=== PATIENT | female | born 1995 | race Hispanic/Latino ===

== ENCOUNTER 2021-10-24 08:37 | Day surgery (SDC) | payer SELFPAY ==
[2021-10-24 09:07] VITALS: BMI 35.4
[2021-10-24] MEDS ORDERED: hydrALAZINE 20 MG/ML VIAL SLOW IVP PRN (09:32)
[2021-10-24] MEDS ORDERED: Acetaminophen 500 MG TAB PO PRN (10:45)
[2021-10-24 11:47] LABS: Bacteria/HPF None Seen HPF (None Seen); RBC/HPF 0-3 HPF (0-3); Squamous Epithelial None Seen HPF (0-3); WBC/HPF 0-3 HPF (0-3)
== END 2021-10-24 12:03 | disposition home or self-care (01) ==
LOC: CSHLD/OP 08:37
PROVIDERS: ATTEND Obstetrics & Gynecology
DX: O26.893 Other specified pregnancy related conditions, third trimester (principal); R10.31 Right lower quadrant pain; O34.219 Maternal care for unspecified type scar from previous cesarean delivery; Z3A.30 30 weeks gestation of pregnancy
CPT/HCPCS: 76857; 81015

== ENCOUNTER 2021-12-21 08:22 | Outpatient (CLI) | payer OTHER ==
[2021-12-21 15:05] LABS: Hemoglobin 12.5 g/dL (12.0-15.5); Mean Corpuscular HGB CONC 30.9 g/dL (32.0-36.0); Mean Corpuscular Hemoglobin 26.4 pg (27.0-33.0); Mean Corpuscular Volume 85.6 fl (81.6-98.3); Mean Platelet Volume 12.6 fl (7.4-10.4); Platelet Count 235 10x3/uL (150-450); RBC Distribution Width 14.3 % (11.5-14.5); Red Blood Cell (RBC) Count 4.73 10x6/uL (3.90-5.03); White Blood Cell (WBC) Count 6.4 10x3/uL (3.5-10.5)
[2021-12-21 15:45] LABS: Hep B Surf Ag Non-Reactive S/CO (NonReactive); Syphilis Antibody Nonreactive (Nonreactive); Syphilis Antibody Index 0.04 S/CO (<1.00 Non-Reactive)
[2021-12-21 15:51] LABS: HBSAg Index 0.18 S/CO (0-0.99)
[2021-12-21 23:14] LABS: SARS-CoV-2 PCR by NAA DETECTED (NotDetected)
== END 2021-12-21 08:23 | disposition home or self-care (01) ==
LOC: CSHLAB 08:22
PROVIDERS: ATTEND Student in an Organized Health Care Education/Training Program
DX: Z20.822 Contact with and (suspected) exposure to COVID-19 (principal)
CPT/HCPCS: 85027; 86780; 86900; 86901; 87340; U0003; U0005

== ENCOUNTER 2021-12-25 15:28 | Inpatient (IN) | payer MEDICAID, OTHER, SELFPAY ==
[2021-12-25] MEDS ORDERED: Bicitra 30 ML UDCUP PO PRN (16:05)
[2021-12-25] MEDS ORDERED: Famotidine/PF 20 mg/2ml Vial SLOW IVP PRN (16:05)
[2021-12-25] MEDS ORDERED: hydrALAZINE 20 MG/ML VIAL SLOW IVP PRN (16:05)
[2021-12-25] MEDS ORDERED: Acetaminophen 500 MG TAB PO PRN (16:05)
[2021-12-25] MEDS ORDERED: Promethazine HCl 25 MG/ML VIAL IM PRN (16:05)
[2021-12-25] MEDS ORDERED: Ondansetron PF 4 MG/2 ML Vial IVP PRN (16:05)
[2021-12-25] MEDS ORDERED: Ondansetron PF 4 MG/2 ML Vial ONE (16:10)
[2021-12-25] MEDS ORDERED: Dexamethasone 4 mg/ml Vial ONE (16:10)
[2021-12-25] MEDS ORDERED: ePHEDrine Sulfate 50 MG/10 ML VIAL ONE (16:10)
[2021-12-25] MEDS ORDERED: Morphine PF 10 MG/10 ML VIAL ONE (16:10)
[2021-12-25] MEDS ORDERED: Oxytocin 10 UNITS/ML VIAL ONE ×2 (16:11→18:02)
[2021-12-25] MEDS ORDERED: Phenylephrine 40 MG/NS 250 ML 250 ML ONE (16:12)
[2021-12-25] MEDS ORDERED: Lactated Ringer's 1,000 ML IV SCH (16:15)
[2021-12-25] MEDS ORDERED: ceFAZolin 2 GM/Dextrose 50 ML 2 GM in Premix Bag 1 BAG IVPB SCH (16:15)
[2021-12-25 16:17] VITALS: BMI 36.3
[2021-12-25 17:03] LABS: #Monocytes 0.3 10x3/uL (0.0-1.1); #Neutrophils 5.4 10x3/uL (1.5-8.4); %Basophils 0.3 % (0.0-2.0); %Eosinophils 0.3 % (0.0-6.0); %Lymphocytes 22.2 % (18.0-47.0); %Monocytes 4.6 % (0.0-10.0); %Neutrophils 72.3 % (40.0-75.0); Hemoglobin 11.2 g/dL (12.0-15.5); Mean Corpuscular HGB CONC 31.5 g/dL (32.0-36.0); Mean Corpuscular Hemoglobin 26.7 pg (27.0-33.0); Mean Corpuscular Volume 84.8 fl (81.6-98.3); Mean Platelet Volume 11.7 fl (7.4-10.4); Platelet Count 214 10x3/uL (150-450); RBC Distribution Width 14.5 % (11.5-14.5); White Blood Cell (WBC) Count 7.4 10x3/uL (3.5-10.5)
[2021-12-25 17:39] LABS: HIV (1/2) Antibody/Antigen Non-Reactive (NonReactive); HIV 1/2 INDEX 0.07 S/CO (<1.00)
[2021-12-25] MEDS ORDERED: Bisacodyl 10 MG SUPP PR PRN (21:40)
[2021-12-25] MEDS ORDERED: diphenhydrAMINE 25 MG CAP PO PRN (21:40)
[2021-12-25] MEDS ORDERED: Misoprostol 200 MCG TAB PR PRN (21:40)
[2021-12-25] MEDS ORDERED: Lanolin Ointment 7 GM TUBE TOP PRN (21:40)
[2021-12-25] MEDS ORDERED: Boostrix 0.5 ML (Tdap) VIAL IM ONE (21:40)
[2021-12-25] MEDS ORDERED: Simethicone Chewable 80 MG TAB PO PRN (21:40)
[2021-12-25] MEDS ORDERED: Acetaminophen 325 MG TAB PO PRN (21:40)
[2021-12-25] MEDS ORDERED: Methylergonovine 0.2 MG/ML VIAL IM PRN (21:40)
[2021-12-25] MEDS ORDERED: Ferrous Sulfate 325 MG TAB PO SCH (22:00)
[2021-12-25] MEDS ORDERED: NS w/ Oxytocin 30 units 500 ML IV SCH (22:00)
[2021-12-26] MEDS: Ibuprofen 800 MG TAB PO SCH ×4 (00:35→21:47)
[2021-12-26 04:58] LABS: Hemoglobin 10.6 g/dL (12.0-15.5); Mean Corpuscular HGB CONC 31.4 g/dL (32.0-36.0); Mean Corpuscular Hemoglobin 26.9 pg (27.0-33.0); Mean Corpuscular Volume 85.8 fl (81.6-98.3); Mean Platelet Volume 11.7 fl (7.4-10.4); Platelet Count 199 10x3/uL (150-450); RBC Distribution Width 14.2 % (11.5-14.5); Red Blood Cell (RBC) Count 3.94 10x6/uL (3.90-5.03); White Blood Cell (WBC) Count 11.1 10x3/uL (3.5-10.5)
[2021-12-26] MEDS: Ferrous Sulfate 325 MG TAB PO SCH ×2 (07:36→21:55)
[2021-12-26] MEDS: Docusate 100 MG CAP PO PRN ×2 (09:02→21:47)
[2021-12-26] MEDS: Prenatal Vitamin 1 TAB PO SCH (09:02)
[2021-12-26] MEDS ORDERED: Penicillin G Potassium 5 MILL.UNITS in Sodium Chloride 0.9% 100 ML IVPB SCH (10:15)
[2021-12-26] MEDS ORDERED: Penicillin G 2.5 MILL.units 2.5 MILL.UNITS in Premix Bag 1 BAG IVPB SCH (10:15)
[2021-12-26] MEDS: HYDROcodone/Acetaminophen 5/325 mg Tablet PO PRN ×2 (11:52→15:55)
[2021-12-27] MEDS: Ibuprofen 800 MG TAB PO SCH ×2 (06:09→14:28)
[2021-12-27] MEDS: Ferrous Sulfate 325 MG TAB PO SCH (07:14)
[2021-12-27] MEDS: Prenatal Vitamin 1 TAB PO SCH (09:52)
[2021-12-27] MEDS: Docusate 100 MG CAP PO PRN (09:52)
[2021-12-27 13:21] VITALS: BP 107/54; TEMP 99.4
== END 2021-12-27 15:15 | disposition home or self-care (01) | DRG 786 ==
LOC: CSHLD 15:28 → CSHANTE 23:30
PROVIDERS: ADMIT Student in an Organized Health Care Education/Training Program; ATTEND Student in an Organized Health Care Education/Training Program
PROC: 10D00Z1 Extraction of Products of Conception, Low, Open Approach (ICD-10-PCS; principal; 2021-12-25)
PROC: 8E0ZXY6 Isolation (ICD-10-PCS; 2021-12-25)
DX: O34.211 Maternal care for low transverse scar from previous cesarean delivery (principal); U07.1 COVID-19; O98.52 Other viral diseases complicating childbirth; Z37.0 Single live birth; Z3A.39 39 weeks gestation of pregnancy; O99.214 Obesity complicating childbirth; O69.81X0 Labor and delivery complicated by cord around neck, without compression, not applicable or unspecified
CPT/HCPCS: 36415; 51702; 85025; 85027; 86850; 86900; 86901; 87389; J1100; J2274; J2405; J2550; J2590

== ENCOUNTER 2023-01-01 05:13 | Inpatient (IN) | payer MEDICAID, OTHER ==
[2022-12-31 10:25] LABS: Hemoglobin 10.8 g/dL (12.0-15.5); Platelet Count 267 10x3/uL (150-450)
[2022-12-31 10:43] LABS: SARS-CoV-2 NAA Rapid Test Not Detected (NotDetected)
[2022-12-31 10:51] LABS: Syphilis Antibody Nonreactive (Nonreactive); Syphilis Antibody Index 0.04 S/CO (<1.00 Non-Reactive)
[2022-12-31 10:53] LABS: HBSAg Index 0.14 S/CO (0-0.99); Hep B Surf Ag Non-Reactive S/CO (NonReactive)
[2023-01-01] MEDS ORDERED: Carboprost 250 MCG/ML AMP IM PRN (05:33)
[2023-01-01] MEDS ORDERED: Promethazine HCl 25 MG/ML VIAL IM PRN ×2 (05:33→07:21)
[2023-01-01] MEDS ORDERED: Misoprostol 200 MCG TAB PR PRN (05:33)
[2023-01-01] MEDS ORDERED: Famotidine/PF 20 mg/2ml Vial SLOW IVP PRN (05:33)
[2023-01-01] MEDS ORDERED: Bicitra 30 ML UDCUP PO PRN (05:33)
[2023-01-01] MEDS ORDERED: Ondansetron PF 4 MG/2 ML Vial IVP PRN ×2 (05:33→07:21)
[2023-01-01] MEDS ORDERED: hydrALAZINE 20 MG/ML VIAL SLOW IVP PRN (05:33)
[2023-01-01] MEDS ORDERED: CEFAZOLIN 2 GM in Sodium Chloride 0.9% 100 ML IVPB SCH (05:45)
[2023-01-01] MEDS ORDERED: Lactated Ringer's 1,000 ML IV SCH ×2 (05:45)
[2023-01-01] MEDS ORDERED: NS w/ Oxytocin 30 units 500 ML IV SCH (05:45)
[2023-01-01 05:52] VITALS: BMI 39.8
[2023-01-01] MEDS ORDERED: Ondansetron HCl/PF 4 MG/2 ML Vial IVP PRN (07:21)
[2023-01-01] MEDS ORDERED: Naloxone HCl 0.4 mg/ml Vial IV PRN (07:21)
[2023-01-01] MEDS ORDERED: Naloxone HCl 0.4 mg/ml Vial IVP PRN ×2 (07:21)
[2023-01-01] MEDS ORDERED: Moisturizing Cream (Eucerin) 113 GM JAR TOP PRN (07:21)
[2023-01-01] MEDS ORDERED: Promethazine HCl 25 MG SUPP PR PRN (07:21)
[2023-01-01] MEDS ORDERED: diphenhydrAMINE 50 MG/ML VIAL IVP PRN (07:21)
[2023-01-01] MEDS ORDERED: Meperidine HCl/PF 25 MG/ML VIAL SLOW IVP PRN (07:21)
[2023-01-01] MEDS ORDERED: Fentanyl 100 MCG/2 ML VIAL SLOW IVP PRN (07:21)
[2023-01-01] MEDS ORDERED: Communication Order-Pharmacy FS SCH (07:30)
[2023-01-01] MEDS ORDERED: Metoclopramide HCl 10 MG/2 ML VIAL ONE (07:36)
[2023-01-01] MEDS ORDERED: Dexamethasone 4 mg/ml Vial ONE (07:36)
[2023-01-01] MEDS ORDERED: Ondansetron PF 4 MG/2 ML Vial ONE (07:36)
[2023-01-01] MEDS ORDERED: Ketorolac Tromethamine 30 MG/ML VIAL ONE (07:36)
[2023-01-01] MEDS ORDERED: Phenylephrine 40 MG/NS 250 ML 0 ML ONE (07:36)
[2023-01-01] MEDS ORDERED: Oxytocin 10 UNITS/ML VIAL ONE (07:37)
[2023-01-01] MEDS ORDERED: Morphine PF 10 MG/10 ML VIAL ONE (07:37)
[2023-01-01] MEDS ORDERED: Ketorolac Tromethamine 30 MG/ML VIAL IVP PRN (15:00)
== END 2023-01-01 12:23 | disposition short-term general hospital (02) | DRG 833 ==
LOC: CSHLD 05:13
PROVIDERS: ADMIT Family Medicine; ATTEND Family Medicine
DX: O34.211 Maternal care for low transverse scar from previous cesarean delivery (principal); Z3A.39 39 weeks gestation of pregnancy; O43.893 Other placental disorders, third trimester; Z20.822 Contact with and (suspected) exposure to COVID-19; O99.824 Streptococcus B carrier state complicating childbirth
CPT/HCPCS: 76815; 85014; 85018; 85049; 86780; 86850; 86900; 86901; 87340; J1100; J1885; J2274; J2405; J2590; J2765; J7120; S0028; U0002